=== PATIENT | male | born 1990 | race Caucasian/White ===

== ENCOUNTER 2024-04-12 22:31 | Emergency (ER) | payer MEDICAID, OTHER ==
[~2024-04-12] VITALS: Ht 175.3 cm; Wt 92.7 kg
[2024-04-12 22:33] VITALS: BP 145/86; PULSE 93; TEMP 98.1; O2SAT 99
[2024-04-12] MEDS: LIDOcaine 1% W/epiNEPHrine 1:100,000 20ml vial SQ ONE (23:13)
[2024-04-12 23:43] VITALS: RESP 18
[2024-04-12] MEDS: ondansetron 4mg rapidly disintigrating tab PO ONE (23:43)
[2024-04-12] MEDS: HYDROcodone/acetaminophen 5mg/325mg tablet PO ONE (23:43)
[2024-04-12] MEDS: TETanus/Pertussis (Acell)/Diphther VAC/PF (Tdap-Adult) 0.5ml syringe IMVAC ONE (23:44)
== END 2024-04-12 23:55 | disposition home or self-care (01) ==
LOC: ER 22:31
DX: S01.112A Laceration without foreign body of left eyelid and periocular area, initial encounter (principal); G43.909 Migraine, unspecified, not intractable, without status migrainosus; F41.9 Anxiety disorder, unspecified; F32.A Depression, unspecified; Z72.89 Other problems related to lifestyle; F12.90 Cannabis use, unspecified, uncomplicated; Z91.018 Allergy to other foods; W01.198A Fall on same level from slipping, tripping and stumbling with subsequent striking against other object, initial encounter; Y93.89 Activity, other specified; Y92.002 Bathroom of unspecified non-institutional (private) residence as the place of occurrence of the external cause; Y99.8 Other external cause status
CPT/HCPCS: 12011; 90471; 90715; 99283